=== PATIENT | female | born 1975 | race Two or more races ===

== ENCOUNTER 2022-11-03 19:07 | Inpatient (IN) | payer BC, MEDICAID, OTHER ==
[2022-11-03 21:36] LABS: Amphetamine Screen,Urine Not Detected (NotDetected); Barbiturate Screen,Urine Not Detected (NotDetected); Benzodiazepines Screen,Urine Not Detected (NotDetected); Cocaine Screen,Urine Not Detected (NotDetected); Methadone Screen, Urine Not Detected (NotDetected); Opiate Screen,Urine Not Detected (NotDetected); Oxycodone Screen, Urine Not Detected (NotDetected); Phencyclidine Screen,Urine Not Detected (NotDetected); Tricyclic Antidepressant,Urine Detected (NotDetected); Urn Cannabinoid Scrn Not Detected (NotDetected)
[2022-11-03] MEDS ORDERED: LORazepam 2 MG/ML INJ IM STA (21:45)
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
[2022-11-03] MEDS ORDERED: HALOPERIDOL LACTATE 5 MG/ML 1 ML VIAL IM PRN (23:56)
[2022-11-03] MEDS ORDERED: MAGNESIUM HYDROXIDE 2,400 MG/10 ML CUP PO PRN (23:56)
[2022-11-03] MEDS ORDERED: MAG HYDROX/AL HYDROX/SIMETH 30 ML CUP PO PRN (23:56)
[2022-11-04] MEDS ORDERED: LORazepam 2 MG/ML INJ IM PRN (00:11)
[2022-11-04] MEDS ORDERED: haloperidoL 5 MG TAB PO PRN (00:12)
[2022-11-04 06:08] LABS: Appearance,Urine Clear (Clear); Bilirubin,Urine Negative (Negative); Blood,Urine Small (Negative); Color,Urine Colorless; Glucose,Urine (UA) Negative (Negative); Ketones,Urine Negative (Negative); Leukocyte Esterase,Urine Negative (Negative); Mucus,Urine Rare /hpf; Nitrite,Urine Negative (Negative); Protein,Urine Negative (Negative); RBC,Urine <1 /hpf (0-5); Specific Gravity,Urine 1.004 (1.001-1.035); Urobilinogen,Urine <2.0 mg/dL (<2.0); WBC,Urine <1 /hpf (0-5)
[2022-11-04] MEDS: NICOTINE 14MG/24HR PATCH TRANSDERM SCH (09:30)
[2022-11-04] MEDS: THIAMINE 100 MG TAB PO SCH (09:30)
[2022-11-04] MEDS ORDERED: traZODone HCL 50 MG TAB PO PRN (14:08)
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
[2022-11-04] MEDS: LITHIUM CARBONATE 300 MG CAP PO SCH (20:54)
[2022-11-04] MEDS ORDERED: QUEtiapine 50 MG TAB PO SCH (21:00)
--- NOTE | 2022-11-04 21:18 | P.CONS ---
History of Present Illness - History of Present Illness This is a pleasant 47 result female who was admitted to the mental health unit for signs and symptoms of Mood disorder, likely secondary to traumatic brain injury . Her psychiatrist with evidence of multiple substance abuse including marijuana, cigarette smoker and alcohol. Patient was seen in walking the hallway with no difficulty, denying any specific symptoms, she denies chest pain or dyspnea or coughing, no diarrhea or vomiting or abdominal pain, no dysuria urgency, no headache dizziness weakness or numbness. She has good appetite. She says she smokes 1 pack per day and she was counseled to quit and she agrees but she did last nicotine patch. Also she says she drinks alcohol without specification. She states she drinks one wine, per every day but now she still needs she desires to quit that because she thinks that interferes with her psychiatrist medication. Also she admits to using marijuana. urine analysis is negative. Urine drug screen is positive for tricyclic antidepressants. Rotavirus nondetected. No other labs done during this admission Review of Systems Review of systems CONSTITUTIONAL: No fever, no malaise, no fatigue. HEENT: No recent visual problems or hearing problems. Denied any sore throat. CARDIOVASCULAR: No orthopnea, PND, no palpitations, no syncope. PULMONARY: No shortness of breath, no cough, no hemoptysis. GASTROINTESTINAL: No diarrhea, no nausea, no vomiting, no abdominal pain. Normoactive bowel sounds. NEUROLOGICAL: No headaches, no weakness, no numbness. HEMATOLOGICAL: Denies any bleeding or petechiae. GENITOURINARY: Denies any burning micturition, frequency, or urgency. MUSCULOSKELETAL/RHEUMATOLOGICAL: Denies any joint pain, swelling, or any muscle pain. ENDOCRINE: Denies any polyuria or polydipsia. Past Medical History Past Medical History: No Reported History Additional Past Medical History / Comment(s): TBI 1989, History of Any Multi-Drug Resistant Organisms: None Reported Past Surgical History: Orthopedic Surgery Additional Past Surgical History / Comment(s): left femur Past Psychological History: Anxiety, Depression Smoking Status: Current every day smoker Past Alcohol Use History: Occasional Past Drug Use History: Marijuana Medications and Allergies Allergies Allergy/AdvReac Type Severity Reaction Status Date / Time Penicillins Allergy Unknown Verified 11/03/22 19:23 Sulfa (Sulfonamide Allergy Unknown Verified 11/03/22 19:23 Antibiotics) Physical Exam Vitals: Vital Signs Temp Pulse Pulse Resp BP BP Pulse Ox 11/04/22 00:50 97.3 F L 88 16 121/91 98 11/03/22 19:23 98.5 F 88 18 131/86 100 Intake and Output 11/03/22 11/04/22 11/04/22 22:59 06:59 14:59 Other: Weight 56.699 kg 55.747 kg GENERAL: The patient is alert and oriented x3, not in any acute distress. Well developed, well nourished. HEENT: Pupils are round and equally reacting to light. EOMI. No scleral icterus. No conjunctival pallor. Normocephalic, atraumatic. No pharyngeal erythema. No thyromegaly. CARDIOVASCULAR: S1 and S2 present. No murmurs, rubs, or gallops. PULMONARY: Chest is clear to auscultation, no wheezing or crackles. ABDOMEN: Soft, nontender, nondistended, normoactive bowel sounds. No palpable organomegaly. MUSCULOSKELETAL: No joint swelling or deformity. EXTREMITIES: No cyanosis, clubbing, or pedal edema. NEUROLOGICAL: Gross neurological examination did not reveal any focal deficits. SKIN: No rashes. no petechiae. Results Labs: Abnormal Lab Results - Last 24 Hours (Table) 11/03/22 11/03/22 Range/Units 20:02 20:02 Urine Blood Small H (Negative) Urine Mucus Rare H (None) /hpf U Tricyclic Antidepress Detected H (NotDetected) Assessment and Plan Assessment: More disorder History of traumatic brain injury Nicotine dependence Alcohol use disorder Substance abuse with cannabis Plan: Patient was counseled to avoid substances including avoid smoking, alcohol and marijuana or other substances, risks are explained for the patient in detail and she verbalized understanding and acceptance. Management of other mental health problems. [facility] primary team We recommend patient follow up with PCP in one week after discharge and she was instructed with the same Thank you for consulting us
[2022-11-05] MEDS: LORazepam 1 MG TAB PO PRN (04:25)
[2022-11-05] MEDS: LITHIUM CARBONATE 300 MG CAP PO SCH ×2 (08:47→20:41)
[2022-11-05] MEDS: NICOTINE 14MG/24HR PATCH TRANSDERM SCH (08:47)
[2022-11-05] MEDS: THIAMINE 100 MG TAB PO SCH (08:47)
--- NOTE | 2022-11-05 09:32 | P.PN ---
Progress Note - Text Progress Note Date: 11/05/22 Interval History: Patient was seen [wandering the hallways near the nurses desk] and was directa ble and agreeable to speak with senior underwriter in the office. [Patient was difficult to redirect today. she was rambling and have tangential thoughts, loose associastions. she beleives that she is an "HSP". She continues to focus on being "voluntary" on the unit and focused on discharge. she states that she did not sleep well last night. continues to have flight of ideas. appetite is fair]. she also continues to be intrusive and demanding. At this time patient denies any suicidal or homical ideations, intent or plan. Patient denies any auditory, visual hallucinations and denies any paranoia or delusions. Patient denies any side effects from the medications and has been compliant with meds. Mental Status Exam: General Appearance: Patient appears to be thin, Well dressed, stated age is alert, difficult to redirect. Patient appears to have improving hygiene and grooming. Behavior: Patient is seated without any agitated behavior. She was difficult to redirect. Speech: Patient's speech is rapid, tangential. Demanding, intrusive. Mood/Affect: Patient reports their mood is "Im fine", affect is incongruent and labile. Suicidality/Homicidality: Patient denies having any homicidal ideation intent or plan. Denies any suicidal ideations intent or plan Perceptions: Patient denies any visual hallucinations and denies any auditory hallucinations Though content/process: Rambles, tangential, focused on discharge. No paranoia or delusions. 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 Patient has not signed adult voluntary form and is placed in patient's chart. currently awaiting deferral and court date. -Medications : lithium 300 mg twice a day for mood stabilization, increase Seroquel 100 mg daily at bedtime for mood stabilization/insomnia. continue Trazodone when necessary for insomnia. -Ativan and Haldol PRN for agitation/aggression -thiamine, MVM for etoh use -CIWA protocol with Ativan PRN for ETOH withdrawal -NRT - nicotine patch -SW on board for discharge planning. Encourage patient to participate in groups to work on coping skills. [Will await deferral and court date.]
[2022-11-05 11:19] VITALS: BMI 21.7
[2022-11-05 11:47] LABS: Basophils % (A) 1 %; Eosinophils % (A) 1 %; HCT 40.1 % (34.0-46.0); HGB 13.3 gm/dL (11.4-16.0); Lymphocytes # (A) 1.2 k/uL (1.0-4.8); Lymphocytes % (A) 40 %; MCH 32.4 pg (25.0-35.0); MCHC 33.3 g/dL (31.0-37.0); MCV 97.3 fL (80.0-100.0); Mean Platelet Volume 7.5; Monocytes # (A) 0.2 k/uL (0-1.0); Monocytes % (A) 8 %; Neutrophils # (A) 1.5 k/uL (1.3-7.7); Neutrophils % (A) 48 %; Platelet Count 253 k/uL (150-450); RBC 4.12 m/uL (3.80-5.40); RDW 11.9 % (11.5-15.5)
[2022-11-05 12:04] LABS: ALT 24 U/L (4-34); AST 28 U/L (14-36); African American GFR (CKD) >90 (>60 ml/min/1.73 sqM); Albumin 4.6 g/dL (3.5-5.0); Alkaline Phosphatase 51 U/L (38-126); Anion Gap 8 mmol/L; Bilirubin, Delta 0.3 mg/dL (0.0-0.2); Bilirubin,Unconjugated 0.4 mg/dL (0.0-1.1); Blood Urea Nitrogen 5 mg/dL (7-17); Calcium 9.4 mg/dL (8.4-10.2); Carbon Dioxide 27 mmol/L (22-30); Chloride 100 mmol/L (98-107); Glucose 92 mg/dL (74-99); Non-African American GFR(CKD) >90 (>60 ml/min/1.73 sqM); Potassium 4.2 mmol/L (3.5-5.1); Sodium 135 mmol/L (137-145); Total Bilirubin 0.7 mg/dL (0.2-1.3); Total Protein 7.3 g/dL (6.3-8.2)
[2022-11-05] MEDS ORDERED: QUEtiapine 100 MG TAB PO SCH (21:00)
[2022-11-05 21:32] LABS: Chol/HDL Ratio 2.96 Ratio; LDL Cholesterol,Calculated 129.6 mg/dL (0.0-131.0)
[2022-11-06] MEDS: ACETAMINOPHEN TAB 325 MG TAB PO PRN ×2 (06:15→16:36)
[2022-11-06] MEDS: THIAMINE 100 MG TAB PO SCH (08:39)
[2022-11-06] MEDS: LITHIUM CARBONATE 300 MG CAP PO SCH ×2 (08:40→20:38)
--- NOTE | 2022-11-06 12:14 | P.PN ---
Progress Note - Text Progress Note Date: 11/06/22 Interval History: Patient was seen [wandering the hallways near the nurses desk] and was directa ble and agreeable to speak with chief underwriter in the office. Patient continues to carry around several papers with writing over it. She continues to be hyperverbal and tangential/circumstantial. She continues to focus on the court proceedings and that her sister is an contract attorney. She was requesting a family meeting today with her sister. She was having loose associations. she continues to focus on being "voluntary" on the unit and focused on discharge and continues to state that she is not sure if lithium is right for her. she states that she did not sleep well last night. continues to have flight of ideas. appetite is fair]. patient is mildly less intrusive and demanding. At this time patient denies any suicidal or homical ideations, intent or plan. Patient denies any auditory, visual hallucinations and denies any paranoia or delusions. Patient denies any side effects from the medications and has been compliant with meds. Mental Status Exam: General Appearance: Patient appears to be thin, Well dressed, stated age is alert, difficult to redirect. Patient appears to have improving hygiene and grooming. Behavior: Patient is seated without any agitated behavior. She was difficult to redirect. Speech: Patient's speech is rapid. less demanding, intrusive. Mood/Affect: Patient reports their mood is "alright", affect is incongruent Suicidality/Homicidality: Patient denies having any homicidal ideation intent or plan. Denies any suicidal ideations intent or plan Perceptions: Patient denies any visual hallucinations and denies any auditory hallucinations Though content/process: Rambles, tangential, focused on discharge. No paranoia or delusions. 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 Patient has not signed adult voluntary form and is placed in patient's chart. currently awaiting deferral and court date. -Medications : lithium 300 mg twice a day for mood stabilization, increase Seroquel 150 mg daily at bedtime for mood stabilization/insomnia. continue Trazodone when necessary for insomnia. -check lithium level tomorrow morning -Ativan and Haldol PRN for agitation/aggression -thiamine, MVM for etoh use -CIWA protocol with Ativan PRN for ETOH withdrawal -NRT - nicotine patch -SW on board for discharge planning. Encourage patient to participate in groups to work on coping skills. patient deferred with her contract attorney. will do family meeting today as requested by patient.
[2022-11-06] MEDS: LORazepam 1 MG TAB PO PRN (16:36)
[2022-11-06] MEDS: QUEtiapine 200 MG TAB PO SCH (20:38)
[2022-11-06] MEDS ORDERED: QUEtiapine 50 MG TAB PO SCH (21:00)
[2022-11-07] MEDS: LORazepam 1 MG TAB PO PRN
[2022-11-07] MEDS: ACETAMINOPHEN TAB 325 MG TAB PO PRN (00:16)
[2022-11-07] MEDS: LITHIUM CARBONATE 300 MG CAP PO SCH ×2 (08:53→20:42)
[2022-11-07] MEDS: THIAMINE 100 MG TAB PO SCH (08:53)
[2022-11-07] MEDS ORDERED: traZODone HCL 50 MG TAB PO PRN (11:08)
--- NOTE | 2022-11-07 11:21 | P.PN ---
Progress Note - Text Progress Note Date: 11/07/22 Interval History: Patient was seen near the nurses desk today and was speaking on the phone joaquin ier, she was directable and agreeable to speak with copywriter in the office. Patient appears to be calmer today and less tangential and less intrusive. She continues to carry around a folder with several papers in it. She claims that she is trying to go to groups and participate as best as she can. She states that she spoke with her sister yesterday and states that "I'm not mad at her" and also claims that she did get benefit from being in the hospital. She states that she is doing better today and was less tangential and less paranoid today. We spoke about her lithium level and the therapeutic range. She asked about discharge planning as well. She claims that she was sleeping fairly however was awoken by a patient and banging noise and needs to take an Ativan. We spoke about using trazodone instead as a prn for sleep. her appetite is fair. The patient is more appropriate and directable today. At this time patient denies any suicidal or homical ideations, intent or plan. Patient denies any auditory, visual hallucinations and denies any paranoia or delusions. Patient denies any side effects from the medications and has been compliant with meds. Mental Status Exam: General Appearance: Patient appears to be thin, Well dressed, stated age is alert, or directable today. Patient appears to have improving hygiene and grooming. Behavior: Patient is seated without any agitated behavior. More directable today less paranoia. Speech: Patient's speech is tangential, improving. less demanding. Mood/Affect: Patient reports their mood is "better", affect is congruent and improving. Suicidality/Homicidality: Patient denies having any homicidal ideation intent or plan. Denies any suicidal ideations intent or plan Perceptions: Patient denies any visual hallucinations and denies any auditory hallucinations Though content/process: Rambles, tangential, improving, focused on discharge. No paranoia or delusions. 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 Patient has not signed adult voluntary form and is placed in patient's chart. -Medications : lithium 300 mg twice a day for mood stabilization, continue Seroquel 200 mg daily at bedtime for mood stabilization/insomnia. continue Trazodone when necessary for insomnia. patient was advised to take trazodone instead of ativan for sleep tonight, she verbally understood and agreed. -lithium level - 0.7 -Ativan and Haldol PRN for agitation/aggression -thiamine, MVM for etoh use -NRT - nicotine patch - on board for discharge planning. Encourage patient to participate in groups to work on coping skills. patient deferred with her tax attorney. family meeting with sister took place yesterday to discuss care and planning. if patient continues to have improvement in sleep and improvement in symptoms by tomorrow then likely discharge tomorrow with [facility] follow up.
[2022-11-07] MEDS ORDERED: traZODone HCL 100 MG TAB PO PRN (13:22)
[2022-11-07] MEDS: QUEtiapine 200 MG TAB PO SCH (20:42)
[2022-11-07] MEDS ORDERED: traZODone HCL 50 MG TAB PO SCH (21:00)
[2022-11-08 07:07] VITALS: BP 107/65; PULSE 109; RESP 16; TEMP 97.9
[2022-11-08] MEDS: THIAMINE 100 MG TAB PO SCH (08:19)
[2022-11-08] MEDS: LITHIUM CARBONATE 300 MG CAP PO SCH (08:19)
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
== END 2022-11-08 12:11 | disposition home or self-care (01) | DRG 753 ==
LOC: EC 19:07 → 3MHU 23:39
PROVIDERS: ADMIT Psychiatry & Neurology Psychiatry; ATTEND Psychiatry & Neurology Psychiatry
DX: F39 Unspecified mood [affective] disorder (principal); S06.9XAS Unspecified intracranial injury with loss of consciousness status unknown, sequela; F10.20 Alcohol dependence, uncomplicated; Z20.822 Contact with and (suspected) exposure to COVID-19; F12.10 Cannabis abuse, uncomplicated; F41.1 Generalized anxiety disorder; F32.A Depression, unspecified; G47.00 Insomnia, unspecified; F17.210 Nicotine dependence, cigarettes, uncomplicated; Z71.6 Tobacco abuse counseling; Z71.41 Alcohol abuse counseling and surveillance of alcoholic; Z71.51 Drug abuse counseling and surveillance of drug abuser; V89.2XXS Person injured in unspecified motor-vehicle accident, traffic, sequela; Z88.0 Allergy status to penicillin; Z88.2 Allergy status to sulfonamides
CPT/HCPCS: 80053; 80061; 80178; 80306; 81001; 81025; 82075; 82248; 83036; 84443; 85025; 87635; 96372; 99285